=== PATIENT | male | born 1965 | race Caucasian/White ===

== ENCOUNTER → 2017-10-02 | Outpatient (CLI) | payer OTHER ==
[~2017-10-02] MED LIST: GLC500 PO; HYDR-4079 PO; INTERFERON SQ; NAPR-1169 PO; [UNRECOGNIZED DRUG - CODE] PO
[2017-10-02 10:58] LABS: HEMATOCRIT 43.6 % (42-52); MEAN CELL VOLUME 94.4 fL (80-100); MEAN CORPUSCULAR HEMOGLOBIN 32.3 pg (25-34); MEAN CORPUSCULAR HGB CONC 34.2 g/dl (32-36); MEAN PLATELET VOLUME 10.8 fL (7.4-10.4); PLATELET COUNT 314 K/uL (130-400); RED BLOOD COUNT 4.62 M/uL (4.7-6.1); WHITE BLOOD COUNT 3.91 K/uL (4.8-10.8)
[2017-10-02 11:12] LABS: ALT/SGPT 23 U/L (12-78); BLOOD UREA NITROGEN 18 mg/dl (7-18); BUN/CREATININE RATIO 24.8 (10-20); CALCIUM 8.7 mg/dl (8.5-10.1); CARBON DIOXIDE 26 mmol/L (21-32); CHLORIDE 106 mmol/L (98-107); CREATININE 0.72 mg/dl (0.60-1.40); GLUCOSE 93 mg/dl (70-99); POTASSIUM 4.1 mmol/L (3.5-5.1); SODIUM 138 mmol/L (136-145)
[2017-10-02 11:13] LABS: ESTIMATED AVERAGE GLUCOSE 108 mg/dl; HA1C FLAG Normal (Normal)
[2017-10-02 11:18] LABS: ALB/GLOB RATIO 1.1 (0.9-2); ALKALINE PHOSPHATASE 55 U/L (45-117); AST/SGOT 20 U/L (15-37); CHOLESTEROL 170 mg/dl (0-200); CHOLESTEROL/HDL RATIO 2.4; FERRITIN 58.4 ng/ml (8.0-388.0); HDL CHOLESTEROL 70 mg/dl; LDL CHOLESTEROL CALCULATED 91 mg/dl; PROSTATE SPECIFIC ANTIGEN 0.834 ng/ml (0.000-4.000); TRIGLYCERIDES 43 mg/dl (0-150); VERY LOW DENSITY LIPOPROT CALC 9 mg/dl
[2017-10-02 11:33] LABS: ACANTHOCYTES 1+; BASOPHIL % 2.6 % (0-2); COMPLETE YES; HOWELL-JOLLY BODIES 1+; LARGE GRANULAR LYMPH ABSOLUTE 0.95 K/uL; LARGE GRANULAR LYMPHOCYTE % 24.3 %; LYMPH ABS # 0.61 K/uL (1.2-3.4); LYMPHOCYTE % 15.7 %; NEUTROPHILS % 31.3 %
== END | disposition home or self-care (01) ==
LOC: C.LABBC 08:25
PROVIDERS: ATTEND Nurse Practitioner Family
DX: Z13.220 Encounter for screening for lipoid disorders (principal); Z12.5 Encounter for screening for malignant neoplasm of prostate; R73.9 Hyperglycemia, unspecified; B18.2 Chronic viral hepatitis C; D64.9 Anemia, unspecified